=== PATIENT | male | born 1955 | race Native Hawaiian/Other Pacific Islander ===

== ENCOUNTER 2019-02-07 13:32 | Outpatient (CLI) | payer BC ==
[2019-02-07 13:57] LABS: POTASSIUM 4.2 mmol/L (3.6-5.2)
== END 2019-02-07 19:06 | disposition home or self-care (01) ==
LOC: LABW 13:32
PROVIDERS: Nurse Practitioner
DX: R53.1 Weakness (principal)
CPT/HCPCS: 36415; 80053

== ENCOUNTER 2020-05-10 15:36 | Outpatient (CLI) | payer BC | END 2020-05-10 21:48 | disposition home or self-care (01) | LOC: RAD 15:36 | PROVIDERS: ATTEND Physician Assistant | DX: R06.00 Dyspnea, unspecified (principal); R06.2 Wheezing; I25.10 Atherosclerotic heart disease of native coronary artery without angina pectoris; R01.1 Cardiac murmur, unspecified; R09.89 Other specified symptoms and signs involving the circulatory and respiratory systems ==

== ENCOUNTER 2022-09-16 10:22 | Outpatient (CLI) | payer OTHER, BC | END 2022-09-16 19:14 | disposition home or self-care (01) | LOC: RAD 10:22 | PROVIDERS: ATTEND Internal Medicine Pulmonary Disease | DX: R06.09 Other forms of dyspnea (principal) ==